=== PATIENT | male | born 1955 | race Caucasian/White ===

== ENCOUNTER 2019-02-10 13:10 | Observation (INO) | payer MEDICARE ==
[~2019-02-10] VITALS: Ht 177.8 cm; Wt 136.5 kg
[2019-02-10] MEDS ORDERED: NITROGLYCERIN 2% 1 GM OINT PKT TD STA (13:22)
[2019-02-10] MEDS ORDERED: FUROSEMIDE 40 MG INJ IV STA (13:22)
[2019-02-10] MEDS ORDERED: ASPIRIN 81 MG TAB PO STA (13:22)
[2019-02-10] MEDS ORDERED: NITROGLYCERIN (SL) 0.4 MG TAB SL PRN (13:30)
[2019-02-10] MEDS ORDERED: ACETAMINOPHEN 325 MG TAB PO PRN (14:00)
[2019-02-10] MEDS ORDERED: ONDANSETRON 4 MG INJ IV PRN (14:00)
--- NOTE | 2019-02-10 14:22 | ERD ---
ER Documentation Chief Complaint Chief Complaint SOB upon exertion worse when walking up stairs [id number] referred by PMD HPI Patient is a 63-year-old male with hypertension who presents with shortness of breath. Over the past 1 month he has had shortness of breath with walking upstairs. He went to his doctor today was found to have low oxygen saturation of 83%. The patient denies chest pain. He denies leg swelling. He was seen by Dr. Dillon in the office today who sent him to the emergency department for admission and further work-up. Upon review of old medical records this is the patient's first visit to the emergency department. ROS All systems reviewed and are negative except as per history of present illness. Allergies Allergies: Coded Allergies: No Known Allergy (Unverified , 02/10/19) PMhx/Soc History of Surgery: No Anesthesia Reaction: No Hx Neurological Disorder: No Hx Respiratory Disorders: No Hx Cardiac Disorders: Yes (htn) Hx Psychiatric Problems: No Hx Miscellaneous Medical Probl: No Hx Alcohol Use: No Hx Substance Use: No Hx Tobacco Use: No Smoking Status: Never smoker FmHx Family History: No coronary disease Physical Exam Vitals Vital Signs Date Temp Pulse Resp B/P (MAP) Pulse Ox O2 O2 Flow FiO2 Time Delivery Rate 02/10/19 Nasal 4 14:18 Cannula 02/10/19 62 22 136/108 99 Nasal 4.0 13:48 (117) Cannula 02/10/19 98.1 62 20 187/88 92 13:13 (121) Physical Exam Const: No acute distress Head: Atraumatic Eyes: Normal Conjunctiva ENT: Normal External Ears, Nose and Mouth. Neck: Full range of motion. No meningismus. Resp: Decreased breath sounds bilaterally Cardio: Regular rate and rhythm, no murmurs Abd: Soft, non tender, non distended. Normal bowel sounds Skin: No petechiae or rashes Back: No midline or flank tenderness Ext: 1+ lower extremity pitting edema bilaterally Neur: Awake and alert Psych: Normal Mood and Affect Result Diagram: 02/10/19 1335 02/10/19 1335 Results 24 hrs Laboratory Tests Test 02/10/19 13:35 White Blood Count 6.1 10^3/ul Red Blood Count 5.48 10^6/ul Hemoglobin 16.0 g/dl Hematocrit 49.3 % Mean Corpuscular Volume 90.0 fl Mean Corpuscular Hemoglobin 29.2 pg Mean Corpuscular Hemoglobin Concent 32.5 g/dl Red Cell Distribution Width 13.2 % Platelet Count 149 10^3/UL Mean Platelet Volume 11.4 fl Immature Granulocytes % 0.500 % Neutrophils % 59.7 % Lymphocytes % 31.3 % Monocytes % 6.2 % Eosinophils % 1.8 % Basophils % 0.5 % Nucleated Red Blood Cells % 0.0 /100WBC Immature Granulocytes # 0.030 10^3/ul Neutrophils # 3.7 10^3/ul Lymphocytes # 1.9 10^3/ul Monocytes # 0.4 10^3/ul Eosinophils # 0.1 10^3/ul Basophils # 0.0 10^3/ul Nucleated Red Blood Cells # 0.0 10^3/ul Sodium Level 141 mmol/L Potassium Level 4.6 mmol/L Chloride Level 100 mmol/L Carbon Dioxide Level 35 mmol/L Anion Gap 6 Blood Urea Nitrogen 14 mg/dl Creatinine 0.74 mg/dl Est Glomerular Filtrat Rate mL/min > 60 mL/min Glucose Level 98 mg/dl Calcium Level 8.8 mg/dl Troponin I Pending Current Medications Medications Dose Sig/Jose M Start Time Status Last (Trade) Ordered Route PRN Stop Time Admin Dose Reason Admin Aspirin 162 mg ONCE STAT 02/10/19 DC 02/10/19 (Aspirin) PO 13:22 13:47 02/10/19 13:24 1 inch ONCE STAT 02/10/19 DC 02/10/19 Nitroglycerin TD 13:22 13:47 02/10/19 13:24 (Nitroglyceri n 2% Oint) 1 tab Q5M UP TO 3 02/10/19 Nitroglycerin DOSES PRN 13:30 SL .CHEST (Nitroglyceri PAIN n (Sl Tab) 0.4 Mg) Furosemide 40 mg ONCE STAT 02/10/19 DC 02/10/19 (Lasix) IV 13:22 13:48 02/10/19 13:24 Ondansetron 4 mg ER BRIDGE 02/10/19 HCl (Zofran PRN IV 14:00 Inj) NAUSEA/VOMITI 02/11/19 13:59 NG 650 mg ER BRIDGE 02/10/19 Acetaminophen PRN PO 14:00 (Tylenol .MILD PAIN 02/11/19 13:59 Tab) 1-3 OR TEMP Procedures/MDM Chest x-ray read by radiology. EKG read by me: Rate/Rhythm: Regular rate and rhythm at a normal rate Intervals: Normal Impression: No evidence of ischemia or arrhythmia Patient is a 63-year-old male with hypertension who presents with shortness of breath with exertion. I am concerned for congestive heart failure and acute pulmonary edema. The patient was hypoxic and Dr. Dillon's office with an oxygen saturation of 83% and was 92% in the waiting room. He was given aspirin, nitroglycerin, and Lasix empirically. I have message Dr. Dillon via [facility] for admission to a telemetry bed. I doubt pneumonia, pneumothorax, or pulmonary embolism. Troponin is pending. Departure Diagnosis: Primary Impression: Hypoxia Additional Impression: Shortness of breath Condition: BARBIE Avila MD Feb 10, 2019 14:22
[2019-02-10] MEDS ORDERED: METO-336 PO (14:55)
[2019-02-10] MEDS ORDERED: ATOR10TA65 PO (14:55)
[2019-02-10 19:28] VITALS: PULSE 63
[2019-02-10 20:00] VITALS: BP 157/93; PULSE 56; PULSE 62; RESP 20; Ht 177.8 cm; Wt 136.5 kg
[2019-02-10] MEDS ORDERED: METOPROLOL (XL) 100 MG TAB PO SCH (21:00)
[2019-02-10] MEDS ORDERED: ATORVASTATIN 10 MG TAB PO SCH (21:00)
[2019-02-10] MEDS ORDERED: ALBUTEROL/IPRATROPIUM (NEB) 3 ML AMP HHN PRN (21:00)
[2019-02-10 22:12] VITALS: PULSE 71
[2019-02-10 23:06] VITALS: PULSE 48
[2019-02-10 23:30] VITALS: BP 130/80; PULSE 61; RESP 20
[2019-02-10 23:32] VITALS: PULSE 63
[2019-02-11] VITALS (10 sets, daily range): BP systolic 101–118; BP diastolic 55–65; PULSE 46–65; RESP 18–20
[2019-02-11] MEDS: ALBUTEROL/IPRATROPIUM (NEB) 3 ML AMP HHN SCH ×3 (01:39→13:11)
[2019-02-11] MEDS ORDERED: PANTOPRAZOLE (EC) 40 MG TAB PO SCH (06:00)
[2019-02-11] MEDS ORDERED: ASPIRIN 81 MG TAB PO SCH (09:00)
--- NOTE | 2019-02-11 11:34 | HP ---
Date/Time of Note Date/Time of Note DATE: 02/11/19 TIME: 11:26 Assessment/Plan VTE Prophylaxis [place] [facility] [place]: 4 [place]CD applied [place] [facility] SCD contraindicated: other Pharmacological prophylaxis: LMWH Lines/Catheters IV Catheter Type (from [facility] [place] [employer] Central line still needed: No Urinary Cath still in place: No Reason Cath still needed: urinary retention Assessment/Plan Assessment/Plan 1. Severe Hypoxemia- plan home oxygen continue BiPAP 2. Hyper carBia pco2 67. 3. Metabolic syndrome. 4. Morbid obesity 5. Snoring with apnea hypopnea-refused new sleeps that the test. Attempting to perform again. 6. Ischemic heart disease angina history of [place] history of stenting by dr. Horn. 7. BPH 8. Low back pain 9. Osteoarthritis and pain of both knees and hips 10. Dyslipidemia. 11. Gastroesophageal reflux disease 12. Bradycardia 13. History of hypertension now hypotensive 14.Chronic tespiratory acidosis compensated with metabolic alkalosis Result Diagram: 02/10/19 1335 02/10/19 1335 Results 24hrs Laboratory Tests Test 02/10/19 13:35 02/10/19 20:14 02/10/19 21:05 02/11/19 01:59 White Blood Count 6.1 Red Blood Count 5.48 Hemoglobin 16.0 Hematocrit 49.3 Mean Corpuscular 90.0 Volume Mean Corpuscular 29.2 Hemoglobin Mean Corpuscular 32.5 Hemoglobin Concen t Red Cell 13.2 Distribution Width Platelet Count 149 Mean Platelet 11.4 H Volume Immature 0.500 H Granulocytes % Neutrophils % 59.7 Lymphocytes % 31.3 Monocytes % 6.2 Eosinophils % 1.8 Basophils % 0.5 Nucleated Red 0.0 Blood Cells % Immature 0.030 Granulocytes # Neutrophils # 3.7 Lymphocytes # 1.9 Monocytes # 0.4 Eosinophils # 0.1 Basophils # 0.0 Nucleated Red 0.0 Blood Cells # Sodium Level 141 Potassium Level 4.6 Chloride Level 100 Carbon Dioxide 35 H Level Anion Gap 6 Blood Urea 14 Nitrogen Creatinine 0.74 Est Glomerular > 60 Filtrat Rate mL/min Glucose Level 98 Calcium Level 8.8 Troponin I < 0.012 < 0.012 < 0.012 Creatine Kinase 53 43 Creatine Kinase 3.1 2.1 Index Creatinine Kinase 1.66 0.91 MB (Mass) Blood Gas Blood arterial Specimen Source Arterial Blood 02/10/2019 9:32:1 Date Drawn 3 PM Arterial Blood pH 7.367 (Temp corrected) Arterial Blood 67.9 H pCO2 (Temp correct) Arterial Blood 43.5 *L pO2 (Temp corrected) Arterial Blood 38.1 H HCO3 Arterial Blood 9.3 H Base Excess Arterial Blood 79.7 L Oxygen Saturation Duglas Test ACCEPTAB Arterial Blood Left Radial Gas Puncture Site Arterial 1.0 Blood Carboxyhemo globin Arterial Blood 0.2 Methemoglobin Blood Gas A-a O2 24.9 H Differential Oxyhemoglobin 78.7 L Percent Blood Gas 37.0 Temperature Blood Gas Actual 20 Respiration Rate Blood Gas ROOM AIR Modality FiO2 21.0 Blood Gas ROSS. 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 Shortness of breath. Getting tired easily. Epigastric pain. Days 63 years old white male who is on BiPAP at home was found to have a oxygen saturation level in office setting reaching to the 85% patient is obese with congestive heart failure with normal blood pressure with plan to make a trip they realize he needs oxygen all the time due to of severe hypoxemia for what he was not evaluated. Indeed his last office was it was exactly 1 year ago. I recommend the patient to go to the hospital to solve this problem from problems in 24 hours and not to make a trip even to consolidate unless he will be on the home oxygen. Patient is now in the hospital he is PO2 was 47 PCO2 was a 67 further work-up was initiated. ROS Constitutional: improved, nausea, weight change; No no complaints, No chills, No diaphoresis, No disoriented, No fatigue, No febrile, No poor po, No other Eyes: No no complaints, No pain, No discharge, No redness, No visual change, No other ENT: sore throat; No no complaints, No bleeding, No pain, No congestion, No discharge, No dysphagia, No other Respiratory: No no complaints, No pain, No cough, No pleuritic pain, No shortness of breath, No sputum, No wheezing, No other Cardiovascular: edema, lightheadedness, orthopenea; No no complaints, No chest pain, No palpitations, No paroxysmal nocturnal dyspnea, No other Gastrointestinal: constipation, decreased appetite, nausea; No no complaints, No pain, No blood, No diarrhea, No flatus, No passing stool, No vomiting, No other Genitourinary: dysuria; No no complaints, No bleeding, No discharge, No flank pain, No hematuria, No other Musculoskeletal: back pain, neck pain; No no complaints, No bone/joint pain, No restricted range of motion, No swelling, No other Skin: bruising, pruritis; No no complaints, No erythema, No laceration, No rash, No skin lesions, No other Neurologic: dizziness, syncope, seizure; No no complaints, No confusion, No focal-weakness, No headache, No other Endocrine: polydypsia, dry skin; No no complaints, No polyuria, No temp intolerance, No weight change, No other Psychological: anxiety; No no complaints, No nl mood/affect, No confusion, No depression, No suicidal, No other Immunologic: No no complaints, No immunodeficiency, No pruritis, No rhinitis, No urticaria, No other PMH/Family/Social Past Medical History Medical History: angina, colitis, congestive heart failure, coronary artery disease, diabetes, gallstones, GERD, high cholesterol, hypertension, renal disease, urinary tract infection Medications Current Medications Nitroglycerin (Nitroglycerin (Sl Tab) 0.4 Mg) 1 tab Q5M UP TO 3 DOSES PRN SL .CHEST PAIN; Start 02/10/19 at 13:30 Ondansetron HCl (Zofran Inj) 4 mg ER BRIDGE PRN IV NAUSEA/VOMITING; Start 02/10/19 at 14:00; Stop 02/11/19 at 13:59 Acetaminophen (Tylenol Tab) 650 mg ER BRIDGE PRN PO .MILD PAIN 1-3 OR TEMP Last administered on 02/11/19at 09:23; Admin Dose 650 MG; Start 02/10/19 at 14:00; Stop 02/11/19 at 13:59 Albuterol/ Ipratropium (Duoneb) 3 ml Q6H RESP THERAPY HHN Last administered on 02/11/19at 08:21; Admin Dose 3 ML; Start 02/11/19 at 02:00 Albuterol/ Ipratropium (Duoneb) 3 ml Q2H RESP THERAPY PRN HHN SHORTNESS OF BREATH; Start 02/10/19 at 21:00 Aspirin (Aspirin) 81 mg DAILY PO Last administered on 02/11/19at 09:10; Admin Dose 81 MG; Start 02/11/19 at 09:00 Pantoprazole (Protonix Tab) 40 mg DAILY@06 PO Last administered on 02/11/19at 0 5:49; Admin Dose 40 MG; Start 02/11/19 at 06:00 Metoprolol Succinate (Toprol Xl) 100 mg HS PO Last administered on 02/10/19at 21:19; Admin Dose 100 MG; Start 02/10/19 at 21:00 Atorvastatin Calcium (Lipitor) 10 mg HS PO Last administered on 02/10/19at 21:19; Admin Dose 10 MG; Start 02/10/19 at 21:00 Coded Allergies: No Known Allergy (Unverified , 02/10/19) Family History Significant Family History: heart disease, COPD, diabetes Social History Alcohol Use: none Smoking Status: Never smoker Drug Use: none Exam/Review of Systems Vital Signs Vitals Vital Signs Date Temp Pulse Resp B/P (MAP) Pulse Ox O2 O2 Flow FiO2 Time Delivery Rate 02/11/19 57 08:00 02/11/19 98.0 20 112/58 90 07:26 (76) 02/11/19 4.0 05:54 02/11/19 45 03:13 02/10/19 Nasal 20:00 Cannula Intake and Output 02/10/19 02/10/19 02/11/19 1515:00 23:00 07:00 IntakeIntake Total 600 ml OutputOutput Total 550 ml 1200 ml 1100 ml BalanceBalance -550 ml -1200 ml -500 ml Exam Constitutional: alert, oriented, well developed, non-verbal Psych: nl mood/affect, anxiety, confusion; No no complaints, No depression, No suicidal, No other Head: normocephalic, atraumatic; No lacerations, No hematomas, No other Eyes: EOMI, nl lids, PERRL; No nl conjunctiva, No nl sclera, No icteric, No fundi, disc, No other ENMT: nl external ears & nose, nl lips & teeth, nl nasal mucosa & septum; No mucosa pink and moist, No intubated, No tympanic membranes, No other Neck: jvd, bruits; No supple, No non-tender, No masses, No thyromegaly, No nuchal rigidity, No other Respiratory: normal air movement, congested cough, crackles/rales, diminished breath sounds; No clear to auscultation, No intercostal retraction, No labored breathing, No respirations, No tactile fremitus, No wheezing, No other Cardiovascular: regular rate and rhythm, nl pulses, edema, jugular venous distention (JVD), systolic murmur; No bruits, No diastolic murmur, No gallop, No irregular rhythm, No murmurs /extra sounds, No rub, No S3, No S4, No other Gastrointestinal: nl liver, spleen, non-tender; No soft, No ascites, No bowel sounds, No distended, No firm, No hepatomegaly, No mass, No rebound or guarding, No splenomegaly, No surgical scars, No tender, No other Genitourinary - Male: nl penis, nl scrotum, CVA tenderness; No discharge, No other Genitourinary - Female: No nl adnexae, No nl external genitalia, No CMT, No CVA tenderness, No uterus, No other Musculoskeletal: joint tenderness, muscle tone, muscle weakness; No nl extremities to inspection, No nl gait and stance, No range of motion, No spine non-tender, No swelling, No other Extremities: normal pulses, cyanosis (lips.), edema, pitting pedal edema; No calf tenderness, No clubbing, No palpable cord, No tenderness, No other Neurological: RN GYN II-XII intact, lethargic (On and off.), numbness; No nl mental status, No nl speech, No nl strength, No confused, No DTR's symmetric, No focal weakness, No reflexes, No unresponsive, No other Skin: nl turgor; No rash or lesions, No diaphoresis, No ecchymosis, No laceration, No puncture, No other Lymph: No nl lymph nodes, No enlarged, No nontender, No other PILOSSJOE GUZMÁN MD Feb 11, 2019 11:34
--- NOTE | 2019-02-11 12:56 | DS ---
Date/Time of Note Date/Time of Note DATE: 02/11/19 TIME: 12:50 Discharge Summary Admission/Discharge Info Admit Date/Time Feb 10, 2019 at 13:39 Discharge Date/Time February 11, 2019 15pm; if home 02 coplex available. Discharge Diagnosis 1. Severe Hypoxemia- P02 47; plan home oxygen continue BiPAP 2. Hyper carBia pco2 67. 3. Metabolic syndrome. 4. Morbid obesity 5. Snoring with apnea hypopnea- Attempting to perform again. 6. Ischemic heart disease angina history of [place] history of stenting by dr. Horn. 7. BPH 8. Low back pain 9. Osteoarthritis and pain of both knees and hips 10. Dyslipidemia. 11. Gastroesophageal reflux disease 12. Bradycardia 13. History of hypertension now hypotensive 14.Chronic respiratory acidosis compensated with metabolic alkalosis Patient Condition: Guarded Hx of Present Illness Daytime sleepiness. Shortness of breath. Getting tired easily. Epigastric pain. Days 63 years old white male who is on BiPAP at home was found to have a oxygen saturation level in office setting reaching to the 85% patient is obese with congestive heart failure with normal blood pressure with plan to make a trip they realize he needs oxygen all the time due to of severe hypoxemia for what he was not evaluated. Indeed his last office was it was exactly 1 year ago. I recommend the patient to go to the hospital to solve this problem from problems in 24 hours and not to make a trip even to consolidate unless he will be on the home oxygen. Patient is now in the hospital he is PO2 was 47 PCO2 was a 67 further work-up was initiated. Hospital Course Admitted with severe hypoxemia and moderate hypercarbia.Home 02 arranged. Further testing for Apnea hypopnea and snoring as an outpatient will be arranged.Cardiology and pulmonary and diatary consults arranged. Home Meds Reported Medications Metoprolol Succinate* (Toprol XL*) 100 Mg Tab.sr.24h, 100 MG PO DAILY, #30 TAB 02/10/19 Atorvastatin Calcium (Atorvastatin Calcium) 10 Mg Tablet, 10 MG PO QHS, #30 TAB 02/10/19 Follow-up Plan in 3 days to . 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 Primary Care Provider Joe Delgado MD Time spent on discharge: > 30 minutes Pending Labs Laboratory Tests Test 02/10/19 13:35 02/10/19 20:14 02/10/19 21:05 02/11/19 01:59 White Blood 6.1 Count 10^3/ul (4.8-10 .8) Red Blood 5.48 Count 10^6/ul (4.70-6 .10) Hemoglobin 16.0 g/dl (14.0-18.0 ) Hematocrit 49.3 % (42.0-52.0) Mean 90.0 Corpuscular fl (82.0-101.0) Volume Mean 29.2 Corpuscular pg (29.0-33.0) Hemoglobin Mean 32.5 Corpuscular g/dl (32.0-37.0 Hemoglobin Conc ) ent Red Cell 13.2 Distribution % (11.5-14.5) Width Platelet Count 149 10^3/UL (140-41 5) Mean Platelet 11.4 Volume fl (7.4-10.4) Immature 0.500 Granulocytes % % (0.001-0.429) Neutrophils % 59.7 % (39.0-77.0) Lymphocytes % 31.3 % (15.0-51.0) Monocytes % 6.2 % (0.0-11.0) Eosinophils % 1.8 % (0.0-7.0) Basophils % 0.5 % (0.0-2.0) Nucleated Red 0.0 Blood Cells % /100WBC (0.0-0. 0) Immature 0.030 Granulocytes # 10^3/ul (0.0-0. 031) Neutrophils # 3.7 10^3/ul (1.6-7. 5) Lymphocytes # 1.9 10^3/ul (0.8-2. 9) Monocytes # 0.4 10^3/ul (0.3-0. 9) Eosinophils # 0.1 10^3/ul (0.0-0. 5) Basophils # 0.0 10^3/ul (0.0-0. 1) Nucleated Red 0.0 Blood Cells # 10^3/ul (0.0-0. 0) Sodium Level 141 mmol/L (135-144 ) Potassium 4.6 Level mmol/L (3.5-5.1 ) Chloride Level 100 mmol/L (97-110) Carbon Dioxide 35 Level mmol/L (21-31) Anion Gap 6 (5-13) Blood Urea 14 mg/dl (7-20) Nitrogen Creatinine 0.74 mg/dl (0.61-1.2 4) Est Glomerular > 60 Filtrat mL/min (>60) Rate mL/min Glucose Level 98 mg/dl (70-220) Calcium Level 8.8 mg/dl (8.4-10.2 ) Troponin I < 0.012 < 0.012 < 0.012 ng/ml (0.000-0. ng/ml (0.000-0 ng/ml (0.000-0 120) .120) .120) Creatine 53 43 Kinase IU/L (23-200) IU/L (23-200) Creatine Kinase 3.1 2.1 Index Creatinine 1.66 0.91 Kinase MB ng/ml (0.0-2.4 ng/ml (0.0-2.4 (Mass) ) ) Blood Gas Blood arterial Specimen Source Arterial Blood 02/10/2019 9:32 Date Drawn :13 PM Arterial Blood 7.367 (7.350-7 pH .450) (Temp corrected ) Arterial Blood 67.9 pCO2 mmhg (35-45) (Temp correct) Arterial Blood 43.5 pO2 mmHG (80-100.0 (Temp corrected ) ) Arterial Blood 38.1 HCO3 mmol/L (22.0-2 6.0) Arterial Blood 9.3 Base Excess mmol/L (-3.0-3 ) Arterial Blood 79.7 Oxygen Saturati mmHG (95.0-98. on 0) Duglas Test ACCEPTAB Arterial Blood Left Radial Gas Puncture Site Arterial 1.0 Blood Carboxyhe % (0.0-3.0) moglobin Arterial Blood 0.2 Methemoglobin % (0.0-1.5) Blood Gas A-a 24.9 O2 mmHg (7.0-24.0 Differential ) Oxyhemoglobin 78.7 Percent % (93.0-99.0) Blood Gas 37.0 C Temperature Blood Gas 20 Actual Respiration Rat e Blood Gas ROOM AIR Modality FiO2 21.0 % Blood Gas ROSS. 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
== END 2019-02-11 16:10 | disposition home or self-care (01) ==
LOC: E/R 13:10 → TEL 13:39
PROVIDERS: ADMIT Family Medicine; ATTEND Family Medicine
DX: R09.02 Hypoxemia (principal); I10 Essential (primary) hypertension; E88.81 Metabolic syndrome and other insulin resistance; E66.01 Morbid (severe) obesity due to excess calories; Z68.41 Body mass index [BMI] 40.0-44.9, adult; R06.83 Snoring; G47.33 Obstructive sleep apnea (adult) (pediatric); I25.10 Atherosclerotic heart disease of native coronary artery without angina pectoris; Z95.5 Presence of coronary angioplasty implant and graft; N40.0 Benign prostatic hyperplasia without lower urinary tract symptoms; M54.5 Low back pain; M17.0 Bilateral primary osteoarthritis of knee; M16.0 Bilateral primary osteoarthritis of hip; E78.5 Hyperlipidemia, unspecified; K21.9 Gastro-esophageal reflux disease without esophagitis; R00.1 Bradycardia, unspecified; E87.4 Mixed disorder of acid-base balance
CPT/HCPCS: 36415; 36600; 71045; 80048; 82550; 82553; 82803; 83735; 84443; 84484; 85025; 93005; 94640; 94660; 94664; 99285; G0378; J1940